=== PATIENT | male | born 1990 ===

== ENCOUNTER 2019-04-18 14:34 | Emergency (ER) | payer MEDICAID, SELFPAY ==
[~2019-04-18] VITALS: Ht 185.4 cm; Wt 130.8 kg
--- NOTE | 2019-04-18 15:53 | NUR ---
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
[2019-04-18] MEDS ORDERED: PALIPERIDONE 3 MG TAB.ER.24 PO SCH (17:00)
[2019-04-18] MEDS ORDERED: PLEASE ENTER ALLERGIES MC SCH (17:00)
[2019-04-18 17:08] LABS: BASOPHILS # (AUTO) 0.06 x10^3/uL (0-0.1); BASOPHILS % (AUTO) 1 % (0-1); EOSINOPHILS # (AUTO) 0.27 x10^3/uL (0-0.4); EOSINOPHILS % (AUTO) 4 % (1-7); LYMPHOCYTES # (AUTO) 1.77 x10^3/uL (1-3.4); LYMPHOCYTES % (AUTO) 23 % (22-44); MD NO; MEAN CORPUSCULAR HEMOGLOBIN 28.6 pg (27.5-34.5); MEAN CORPUSCULAR HGB CONC 33.1 g/dL (33.2-36.2); MEAN CORPUSCULAR VOLUME 86.4 fL (81-97); MEAN PLATELET VOLUME 8.3 fL (7.4-10.4); MONOCYTES # (AUTO) 0.93 x10^3/uL (0.2-0.8); MONOCYTES % (AUTO) 12 % (2-9); NEUTROPHILS # (AUTO) 4.58 x10^3/uL (1.8-6.8); NEUTROPHILS % (AUTO) 60 % (42-75); PLATELET COUNT 372 x10^3/uL (130-400); RED BLOOD COUNT 5.91 x10^6/uL (4.38-5.82); RED CELL DISTRIBUTION WIDTH 14.1 % (9.4-14.8)
[2019-04-18 17:17] LABS: ALBUMIN 3.6 g/dL (3.4-5.0); ANION GAP 8 mmol/L (5-15); CALCIUM 8.5 mg/dL (8.5-10.1); CHLORIDE 109 mmol/L (98-107); CREATININE 1.02 mg/dL (0.7-1.3)
[2019-04-18 17:18] LABS: SALICYLATE LEVEL < 1.7 mg/dL (2.8-20.0)
--- NOTE | 2019-04-18 17:46 | NUR ---
PT AKING SHOWER, ATE 100% OF MEAL TRAY ROOM SECURED, 1 BAG OF BELONGINGS IN LOCKER
--- NOTE | 2019-04-18 18:47 | NUR ---
sitter at bedside, cont to monitor and meet pt needs pt medicated as ordered
--- NOTE | 2019-04-18 20:05 | NUR ---
TP: FAXED TO [facility]. WAITING FOR RESPONSE
[2019-04-18 20:40] LABS: AMPHETAMINE SCREEN, URINE Negative (Negative); BARBITURATE SCREEN, URINE Negative (Negative); BENZODIAZEPINE SCREEN, URINE Negative (Negative); CANNABINOID SCREEN, URINE Positive (Negative); COCAINE SCREEN, URINE Negative (Negative); METHADONE SCREEN, URINE Negative (Negative); OPIATE SCREEN, URINE Negative (Negative)
--- NOTE | 2019-04-18 21:55 | NUR ---
TP: SPOKE WITH SOFY DE LA GARZA PT TO BE ACCEPTED TO [facility]
[2019-04-18 22:05] VITALS: BP 143/85
--- NOTE | 2019-04-18 22:05 | NUR ---
PT RESTING ON GURNEY, PROVIDED DECAF COFFEE AND WARM BLANKETS FOR COMFORT. PT UPDATED ON POC. PT COOPERATIVE AND CALM. VSS. SITTER IN HALLWAY WITHIN LINE OF SIGHT.
--- NOTE | 2019-04-18 22:19 | NUR ---
PT REPORTS HE HAS BEEN "FEELING DEPRESSED LATLY". PT DENIES SI/HI. REPORTS HE STOPPED TAKING HIS MEDICATIONS AND HAS A HX OF SCHIZOPHRENIA. PT AOX4, CALM AND COOPERATIVE, UPAD MICHELLE TO BR WITH STEADY GAIT. NO CURRENT MEDICAL COMPLAINTS.
== END 2019-04-18 22:32 ==
LOC: ED 19:44
DX: F23 Brief psychotic disorder (principal); F20.9 Schizophrenia, unspecified
CPT/HCPCS: 36415; 80048; 80307; 82040; 85025; 99285

== ENCOUNTER 2019-04-18 22:21 | Inpatient (IN) | payer MEDICAID ==
[~2019-04-18] VITALS: Ht 185.4 cm
[2019-04-18 22:58] LABS: MICROSCOPIC NOT IND
[2019-04-18] MEDS ORDERED: PLEASE ENTER HEIGHT AND WEIGHT MC SCH (23:00)
[2019-04-18] MEDS ORDERED: DOCUSATE 100 MG CAPSULE PO PRN (23:00)
[2019-04-18] MEDS ORDERED: BISACODYL 10 MG SUPP PR PRN (23:00)
[2019-04-18] MEDS ORDERED: ACETAMINOPHEN 325 MG TABLET PO PRN (23:00)
[2019-04-18 23:05] LABS: CULTURE INDICATED? NO
[2019-04-19 00:22] VITALS: BP 138/66
[2019-04-19] MEDS ORDERED: FLU VACC QS2019-20 36MOS UP/PF 0.5 ML IM-VACC ONE (01:30)
[2019-04-19 06:53] LABS: BASOPHILS # (AUTO) 0.03 x10^3/uL (0-0.1); BASOPHILS % (AUTO) 1 % (0-1); EOSINOPHILS # (AUTO) 0.61 x10^3/uL (0-0.4); EOSINOPHILS % (AUTO) 11 % (1-7); LYMPHOCYTES # (AUTO) 1.64 x10^3/uL (1-3.4); LYMPHOCYTES % (AUTO) 30 % (22-44); MD NO; MEAN CORPUSCULAR HEMOGLOBIN 28.5 pg (27.5-34.5); MEAN CORPUSCULAR HGB CONC 32.9 g/dL (33.2-36.2); MEAN CORPUSCULAR VOLUME 86.5 fL (81-97); MONOCYTES # (AUTO) 0.79 x10^3/uL (0.2-0.8); MONOCYTES % (AUTO) 14 % (2-9); NEUTROPHILS # (AUTO) 2.42 x10^3/uL (1.8-6.8); NEUTROPHILS % (AUTO) 44 % (42-75); PLATELET COUNT 335 x10^3/uL (130-400); RED BLOOD COUNT 5.61 x10^6/uL (4.38-5.82); RED CELL DISTRIBUTION WIDTH 14.4 % (9.4-14.8)
[2019-04-19 07:03] LABS: ANION GAP 5 mmol/L (5-15); CALCIUM 8.3 mg/dL (8.5-10.1); CHLORIDE 110 mmol/L (98-107); CHOLESTEROL, TOTAL 124 mg/dL (140-239); CREATININE 0.76 mg/dL (0.7-1.3); TRIGLYCERIDES 97 mg/dL (50-200); VLDL CHOLESTEROL 19 mg/dL (0-25)
[2019-04-19 07:18] VITALS: BP 129/79
[2019-04-19 07:29] LABS: CHOL/HDL RATIO 3.6; FREE T4 (FREE THYROXINE) 1.19 ng/dL (0.76-1.46); HDL CHOL % 27 % (26-37); HDL CHOLESTEROL (DIRECT) 34 mg/dL (40-60); LDL CHOLESTEROL,CALCULATED 71 mg/dL (54-169); LDL/HDL RATIO 2.1 (0.5-3.0)
[2019-04-19] MEDS: NICOTINE 14MG/24 HR PATCH.TD24 TD SCH (08:43)
[2019-04-19] MEDS: PALIPERIDONE 3 MG TAB.ER.24 PO SCH (13:59)
[2019-04-19 20:08] VITALS: BP 112/70
[2019-04-20 07:31] VITALS: BP 130/77
[2019-04-20] MEDS: PALIPERIDONE 3 MG TAB.ER.24 PO SCH (10:00)
[2019-04-20] MEDS: NICOTINE 14MG/24 HR PATCH.TD24 TD SCH (10:05)
[2019-04-20 19:49] VITALS: BP 143/84
[2019-04-21] MEDS: PALIPERIDONE 3 MG TAB.ER.24 PO SCH (10:02)
[2019-04-21] MEDS: NICOTINE 14MG/24 HR PATCH.TD24 TD SCH (10:02)
[2019-04-21] MEDS: CARBAMAZEPINE XR 200 MG TABLET PO SCH ×2 (14:26→21:44)
[2019-04-21 14:30] VITALS: BP 129/80
[2019-04-21 19:15] VITALS: BP 148/87
[2019-04-22 07:25] VITALS: BP 124/73
[2019-04-22] MEDS: CARBAMAZEPINE XR 200 MG TABLET PO SCH ×2 (08:43→20:43)
[2019-04-22] MEDS: PALIPERIDONE 3 MG TAB.ER.24 PO SCH (08:43)
[2019-04-22] MEDS: POLYETHYLENE GLYCOL 17 GM PACKET PO PRN (08:44)
[2019-04-22] MEDS: NICOTINE 14MG/24 HR PATCH.TD24 TD SCH (08:44)
[2019-04-22 19:55] VITALS: BP 127/78
[2019-04-23 07:09] VITALS: BP 130/75
[2019-04-23] MEDS: PALIPERIDONE 3 MG TAB.ER.24 PO SCH (08:47)
[2019-04-23] MEDS: CARBAMAZEPINE XR 200 MG TABLET PO SCH ×2 (08:47→20:34)
[2019-04-23] MEDS: NICOTINE 14MG/24 HR PATCH.TD24 TD SCH (08:48)
[2019-04-23 19:47] VITALS: BP 103/64
[2019-04-24 07:15] VITALS: BP 118/71
[2019-04-24] MEDS: POLYETHYLENE GLYCOL 17 GM PACKET PO PRN (08:30)
[2019-04-24] MEDS: PALIPERIDONE 3 MG TAB.ER.24 PO SCH (08:30)
[2019-04-24] MEDS: NICOTINE 14MG/24 HR PATCH.TD24 TD SCH (08:31)
[2019-04-24] MEDS: CARBAMAZEPINE XR 200 MG TABLET PO SCH ×2 (08:31→20:56)
[2019-04-24 19:46] VITALS: BP 130/72
[2019-04-25 07:45] VITALS: BP 122/80
[2019-04-25] MEDS: NICOTINE 14MG/24 HR PATCH.TD24 TD SCH (08:37)
[2019-04-25] MEDS: CARBAMAZEPINE XR 200 MG TABLET PO SCH ×2 (08:37→20:05)
[2019-04-25] MEDS: PALIPERIDONE 3 MG TAB.ER.24 PO SCH (08:37)
[2019-04-25 19:58] VITALS: BP 117/54
[2019-04-26 07:47] VITALS: BP 109/70
[2019-04-26] MEDS: NICOTINE 14MG/24 HR PATCH.TD24 TD SCH (08:37)
[2019-04-26] MEDS: CARBAMAZEPINE XR 200 MG TABLET PO SCH ×2 (08:37→20:34)
[2019-04-26] MEDS: PALIPERIDONE 6 MG TAB.ER.24 PO SCH (08:37)
[2019-04-26 19:52] VITALS: BP 126/77
[2019-04-27 07:41] VITALS: BP 134/84
[2019-04-27] MEDS: PALIPERIDONE 6 MG TAB.ER.24 PO SCH (08:08)
[2019-04-27] MEDS: NICOTINE 14MG/24 HR PATCH.TD24 TD SCH (08:08)
[2019-04-27] MEDS: CARBAMAZEPINE XR 200 MG TABLET PO SCH (08:08)
[2019-04-27] MEDS ORDERED: NICO-486 TD (12:23)
[2019-04-27] MEDS ORDERED: PALI6TAB5 PO (12:23)
[2019-04-27] MEDS ORDERED: CARB200T2 PO (12:23)
== END 2019-04-27 14:06 | disposition home or self-care (01) | DRG 750 ==
LOC: 3E 22:49
PROVIDERS: ADMIT Psychiatry & Neurology Psychosomatic Medicine; ATTEND Psychiatry & Neurology Psychosomatic Medicine
DX: F20.0 Paranoid schizophrenia (principal); Z91.19 Patient's noncompliance with other medical treatment and regimen; E66.9 Obesity, unspecified; F17.210 Nicotine dependence, cigarettes, uncomplicated; G47.00 Insomnia, unspecified; I10 Essential (primary) hypertension; Z91.5 Personal history of self-harm
CPT/HCPCS: 36415; 71045; 80048; 80061; 81003; 82607; 84439; 84443; 85025; 90686; 93005